=== PATIENT | male | born 1950 | race Caucasian/White ===

== ENCOUNTER 2021-05-09 11:31 | Day surgery (SDC) | payer MEDICARE, SELFPAY ==
[2021-05-09 11:50] VITALS: BP 144/66; PULSE 69; RESP 16; TEMP 36.6; O2SAT 97
[2021-05-09] MEDS: Tropicam./Phenyleph. (1/2.5%) 5 ML BTL OS ×3 (12:11→12:21)
--- NOTE | 2021-05-09 12:48 | W.ANESPRE ---
General Info Date of Service Date Performed: 05/09/21 Height: 5 ft 11 in Weight: 106 kg Body Mass Index (BMI): 32.5 Surgical Procedure: Operation Date: 05/09/21 14:40 Proposed Procedures Side Surgeon p Cataract Extraction with IOL Left Joshua Davies MD Meds Allergies and Home Medications Allergies Allergy/AdvReac Type Severity Reaction Status Date / Time hornet venom Allergy Severe Swelling/Ed Verified 05/09/21 11:43 janeen Home Medication Medication Instructions Recorded acetaminophen 325 mg PO Q8H PRN NS 08/29/16 bisacodyl [Dulcolax] 5 mg PO ONCE #4 tab 08/29/16 calcium carbonate 600 mg PO DAILY NS 08/29/16 cyanocobalamin (vitamin B-12) 2,500 mcg PO DAILY NS 08/29/16 polyethylene glycol 3350 [Miralax] 255 gm PO for colonoscopy #1 gm 08/29/16 sodium chloride [Saline Nose [place]] 45 ml NS PRN PRN spray NS 08/29/16 turmeric root extract 500 mg PO DAILY NS 08/29/16 amlodipine 2.5 mg PO DAILY 05/06/21 aspirin [Aspir-81] 81 mg PO DAILY 05/06/21 atorvastatin 20 mg PO HS 05/06/21 budesonide [Pulmicort Flexhaler] 1 inh INHALATION DAILY 05/06/21 folic acid 1 mg PO DAILY 05/06/21 losartan 50 mg PO DAILY 05/06/21 Current Visit Medications: Current Medications Generic Name Dose Route Start Last Admin Trade Name Freq PRN Reason Stop Dose Admin Acetaminophen 1,000 mg 05/09/21 06:00 Acetaminophen 500 Mg Tab PO Q4H PRN PRN Miscellaneous Medication 0 ml 05/09/21 06:00 Prednisolone 1%, Moxifloxacin 0.5%, Nepafenac 0.1% 5ml Btl OS DIRECTED [facility] Miscellaneous Medication 0 ml 05/09/21 06:00 05/09/21 12:21 Tropicam./Phenyleph. (1/2.5%) 5 Ml Btl OS 1 drp DIRECTED JEN Administration Tetracaine HCl 0 ml 05/09/21 06:00 Tetracaine 0.5% 4 Ml Btl OS DIRECTED [facility] Medical History Medical History Asbestosis Asthma Clavicular fracture Dizziness DJD (degenerative joint disease) Excessive drinking alcohol Gallbladder pancreatitis Hand injury HTN (hypertension) Obesity Right knee pain Sleep apnea Spinal stenosis Surgical History Surgical History Colonoscopy (08/31/10) Colonoscopy - MAC (09/18/16) Trigger Finger release Tobacco Smoking/Tobacco Use Status: Former Tobacco Use Alcohol Alcohol Intake: current Alcohol intake frequency: a few times a week Alcohol type: beer Substance Use Substance use: Never Substance use type: does not use Vital Signs and Lab Results Vital Signs Most Recent Vital Signs in EMR: Most Recent Vital Signs Temp Pulse Resp BP Pulse Ox 36.6 C 69 16 144/66 H 97 05/09/21 11:50 05/09/21 11:50 05/09/21 11:50 05/09/21 11:50 05/09/21 11:50 Lab Results Blood Type / Crossmatch: No Data to Display Complete Blood Count: No Data to Display Complete Metabolic Panel: No Data to Display Liver Function Panel: No Data to Display Coagulation Panel: No Data to Display Cardiac Panel: No Data to Display Arterial Blood Gas: No Data to Display Venous Blood Gas: No Data to Display Pancreas Panel: No Data to Display Thyroid Panel: No Data to Display Infectious Disease: No Data to Display Blood Cultures: No Data to Display Toxicology Panel: No Data to Display Anesthesia Assessment and Plan Anesthesia History Personal History: No History of Anesthesia Complications Family History: No Family History of Anesthesia Complications Exercise Tolerance Exercise Tolerance: Metabolic Equivalents>4 Pertinent Negatives Pertinent Negatives: No Symptoms of GERD, No Major Cardiovascular Symptoms or Complaints, No Major Pulmonary Symptoms or Complaints and No History of CVA/TIA Cardiac & Pulmonary Exam Cardiac Exam: Normal S1/S2 Heart Sounds Pulmonary Exam: Clear Bilateral Breath Sounds Airway Exam Known Difficult Airway: No Mallampati Class: 3 Mouth Opening: Narrow (< 3cm) Thyromental Distance: Greater than 3 cm Neck Range of Motion: Full ROM Neck Circumference: Normal Teeth Condition: Normal Dentition ASA Classification ASA Score: ASA 2 Emergency Case?: No NPO Status NPO Status: NPO Clears >2 hours, Solids >8 hours Anesthesia Plan Resuscitation Status: Full Code Anesthesia Technique: MAC Anesthesia Airway Planned: Natural Airway Monitors Used: Standard Monitors
[2021-05-09 12:49] VITALS: BMI 32.5
[2021-05-09] MEDS: Lidocaine 2% Jelly 6 ML SYR (14:00)
[2021-05-09] MEDS: Duovisc Viscoelastic System EACH 1 EACH (14:00)
[2021-05-09] MEDS: Balanced Salt Soln.-PLUS 500 ML BAG (14:00)
[2021-05-09] MEDS: Lidocaine 1% Pres-Free 5 ML VIAL (14:00)
[2021-05-09] MEDS: Povidone-Iodine Ophth 30 ML BTL (14:00)
[2021-05-09] MEDS: Tetracaine 0.5% 4 ML BTL OS (14:00)
--- NOTE | 2021-05-09 14:12 | W.ANESPOSTOP ---
Postoperative Evaluation Date, Time and Location Date Performed: 05/09/21 Time Performed: 14:30 Patient Location: Day Surgery Unit Vital Signs Most Recent Imported Vital Signs: Most Recent Vital Signs Temp Pulse Resp BP Pulse Ox 36.6 C 69 16 144/66 H 97 05/09/21 11:50 05/09/21 11:50 05/09/21 11:50 05/09/21 11:50 05/09/21 11:50 Most Recent Manually Entered Vital Signs: Adult Blood Pressure: 143/63 Heart Rate: 56 Respirations: 16 Oxygen Saturation (%): 99 Temperature (C): 36.1 C Pain Score (0-10 Scale): 0 Pain Score Most Recent Pain Score: Most Recent Pain Score Pain Level 0 05/09/21 11:50 Assessment Mental Status: Awake (Alert & Oriented to Patient Baseline) Airway and Respiratory Function: Patent airway with normal (patient baseline) respiratory exam Cardiovascular Function: Hemodynamically Stable Hydration Status: Adequately Hydrated Nausea & Vomiting: No Nausea or Vomiting Pain: Pt. Denies Any Pain Peripheral Nerve Block: Other (Local by Dr. Davies)
[2021-05-09 14:15] VITALS: BP 143/80; PULSE 59; RESP 16; TEMP 36.1; O2SAT 99
--- NOTE | 2021-05-09 14:16 | W.PM.DSUDISC ---
Discharge Plan Disposition Patient Disposition: HOME Condition: Good Discharge Details Attending Provider: Joshua Davies Primary Care Provider: Steven Castillo Home Meds and New Rx's Prescriptions: No Action acetaminophen 325 MG tablet 325 mg PO Q8H PRN RF: 0 calcium carbonate 600 MG tablet 600 mg PO DAILY RF: 0 sodium chloride [Saline Nose] 45 ML aerosol,spray 45 ml NS PRN PRNRF: 0 turmeric root extract 500 MG capsule 500 mg PO DAILY RF: 0 cyanocobalamin (vitamin B-12) 2,500 MCG tablet 2,500 mcg PO DAILY RF: 0 polyethylene glycol 3350 [Miralax] 17 GM powder in packet 255 gm PO for colonoscopy Qty: 1 RF: 0 bisacodyl [Dulcolax (bisacodyl)] 5 MG tablet,delayed release (DR/EC) 5 mg PO ONCE Qty: 4 RF: 0 losartan 50 mg Tablet 50 mg PO DAILY RF: 0 atorvastatin 20 mg Tablet 20 mg PO HS RF: 0 amlodipine 2.5 mg Tablet 2.5 mg PO DAILY RF: 0 aspirin [Aspir-81] 81 mg Tablet,Delayed Release (Dr/Ec) 81 mg PO DAILY RF: 0 folic acid 1 mg Tablet 1 mg PO DAILY RF: 0 Pulmicort Flexhaler 180 mcg/actuation Aerosol Powdr Breath Activated 1 inh INHALATION DAILY RF: 0 Discharge Instructions Stand Alone Forms: Post-op Topical Cataract, See [place] (DSU) Discharge Orders Discharge Orders: Discharge Order (Routine); Ordered 05/09/21 Ordered By: Joshua Davies DS: Diagnosis Discharge Diagnosis (1) Nuclear sclerotic cataract of left eye: Status: Resolved
--- NOTE | 2021-05-09 14:17 | W.PM.OP ---
Date of service: 05/09/21 Time of Service: 14:17 Operative Note Operative Note DATE OF PROCEDURE: 05/09/21 PRE-OP DIAGNOSIS: Nuclear cataract, left eye POST-OP DIAGNOSIS: same PROCEDURE: Cataract extraction using phacoemulsification with intraocular lens implant, left eye SURGEON: Joshua Davies ANESTHESIA TYPE: Local By Surgeon and MAC Refer to Anesthesia Record PATHOLOGY: none sent COMPLICATIONS: None Patient was transported to: same day Patient's condition: stable Implants: Polo and Polo / [employer] Tecnis [id number] Indications: Progressive decreased vision due to cataract, left eye, with poor red reflex Procedure Description: CATARACT SURGERY OPERATIVE REPORT PREOPERATIVE DIAGNOSIS: 1. Nuclear cataract, left eye POSTOPERATIVE DIAGNOSIS: Same OPERATION: 1. Cataract extraction using phacoemulsification with posterior chamber intraocular lens implant, left eye. IOL: IOL Quality Assurance Auditor/Model: Polo & Polo / SAUL Tecnis [id number] IOL Power: + 11.0 diopters IOL Serial Number: [id number] Optic Diameter: 6.0 mm Haptic/Overall Diameter: 13.0 mm PHACO INFO: Karlos[employer]oomrat Vision System with OZil and Active Fluidics Cumulative Dispersed Energy (CDE): 13.53 seconds SURGEON: Joshua Davies MD, ADDISON ANESTHESIA: Monitored A [facility] (MAC), with local sub-tenon's anesthetic infiltration COMPLICATIONS: None SPECIMENS: None INDICATIONS FOR PROCEDURE: The patient is a 70-year-old gentleman with history of diminished visual acuity in his left eye secondary to the development of significant nuclear cataract. He has a history of high myopia and amblyopia. The option of cataract surgery was offered to the patient and he felt he was symptomatic enough that he wished to proceed. PROCEDURE: The correct surgical eye was identified and marked as the left eye and the pupil was dilated in the preoperative area using mydriatics and cycloplegics. The dilated pupil size was 7.0 mm. Oral sedation was administered in the form of an Imprimis MKO Melt (midazolam 3mg/ketamine 25mg/ondansetron 2mg). The patient was brought to the operating room where cardiopulmonary monitoring was instituted and surgical time-out was performed, confirming the correct operative eye and IOL power. Topical anesthesia was administered and ophthalmic povidone-iodine 5% was instilled into the conjunctival fornices. Lidocaine gel was applied to the cornea and the nicanor-ocular area was prepped with Betadine 10% solution and draped in the usual sterile fashion for intraocular surgery, including an aperture drape. A Tegaderm transparent film dressing was cut in half and used to cover the lashes and lid margins. Care was taken to sequester the lashes and lid margins under the Tegaderm dressing. A lid speculum was placed between the lids of the operative eye and the Jerry-Trina operating microscope was maneuvered into position. Edinson scissors were then used to make a conjunctival buttonhole approximately 6mm posterior to the limbus in the inferonasal quadrant. Blunt dissection was carried out to expose bare sclera, and a blunt-tipped sub-tenon?s anesthesia cannula was introduced and passed posteriorly along the globe where non-preserved plain lidocaine was injected into posterior sub-Tenon?s space. A sideport knife was used to make a paracentesis port superiorly/superiortemporally. Intraocular phenylephrine/lidocaine was injected int the anterior chamber.. Air was then injected into the anterior chamber, followed by Vision Blue, which was painted over the anterior capsule and then irrigated out using BSS. The anterior chamber was filled with viscoelastic. A 2.4mm keratome knife was used to create a half-thickness groove at the limbus and then to construct a three-plane near-clear corneal tunnel extending 2.0mm into clear cornea at the 3:00 position. A flap was raised on the anterior capsule and capsulorhexis forceps were used to complete a continuous curvilinear capsulorhexis of 5.0 mm. Balanced salt solution was then used to perform cortical cleaving hydrodissection and nuclear hydrodelineation until the lens could be freely rotated within the capsular bag. The lens nucleus was then disassembled and removed within the capsular bag and iris plane using phacoemulsification. Residual cortical material was removed using the 45-degree angled silicone I/A tip with 0.3mm port. The posterior capsule was carefully polished to remove as much residual lens epithelial cells as safely possible. The capsular bag was then inflated and the anterior chamber deepened with viscoelastic. The lens implant described above was inserted into the capsular bag using the SAUL [place] Injector. A Kuglen hook was used to dial the IOL into position. Residual viscoelastic was then removed first from posterior to the IOL, then from the anterior chamber using the I/A handpiece. The lens implant was noted to center nicely within the capsular bag. The incisions were stromally hydrated, and the anterior chamber was reformed using BSS. Then 0.5cc of moxifloxacin 1.0mg/ml were injected into the capsular bag and anterior chamber. The incisions were checked with a Weck spear and found to be secure. Several drops of ophthalmic povidone-iodine 5% were then applied to the eye followed by two drops of Imprimis combination prednisolone/moxifloxacin/nepafenac solution. The drapes were removed and a clear plastic protective eye shield was placed over the eye. The patient was then returned to Same Day Surgery in stable condition.
[2021-05-10 07:29] VITALS: BP 143/63; PULSE 56; RESP 16; TEMPC 36.1; O2SAT 99
== END 2021-05-09 14:58 | disposition home or self-care (01) ==
PROVIDERS: PCP Family Medicine; Visit Provider Ophthalmology
PROC: (CPT 66984; principal; 2021-05-09 14:30)
DX: H25.12 Age-related nuclear cataract, left eye (principal)
CPT/HCPCS: 66984; V2632

== ENCOUNTER 2021-05-23 08:02 | Day surgery (SDC) | payer MEDICARE, SELFPAY ==
[2021-05-23 08:24] VITALS: BP 125/60; PULSE 70; RESP 16; TEMP 36.6; O2SAT 97
[2021-05-23] MEDS: Tropicam./Phenyleph. (1/2.5%) 5 ML BTL OD ×3 (08:33→08:45)
[2021-05-23 08:43] VITALS: BMI 32.9
--- NOTE | 2021-05-23 08:43 | W.ANESPRE ---
General Info Date of Service Date Performed: 05/23/21 Height: 5 ft 11 in Weight: 107.2 kg Body Mass Index (BMI): 32.9 Surgical Procedure: Operation Date: 05/23/21 10:40 Proposed Procedures Side Surgeon p Cataract Extraction with IOL Implant Right Joshua Davies MD Meds Allergies and Home Medications Allergies Allergy/AdvReac Type Severity Reaction Status Date / Time hornet venom Allergy Severe Swelling/Ed Verified 05/23/21 08:19 janeen Home Medication Medication Instructions Recorded acetaminophen 325 mg PO Q8H PRN NS 08/29/16 bisacodyl [Dulcolax] 5 mg PO ONCE #4 tab 08/29/16 calcium carbonate 600 mg PO DAILY NS 08/29/16 cyanocobalamin (vitamin B-12) 2,500 mcg PO DAILY NS 08/29/16 polyethylene glycol 3350 [Miralax] 255 gm PO for colonoscopy #1 gm 08/29/16 sodium chloride [Saline Nose [place]] 45 ml NS PRN PRN spray NS 08/29/16 turmeric root extract 500 mg PO DAILY NS 08/29/16 amlodipine 2.5 mg PO DAILY 05/06/21 aspirin [Aspir-81] 81 mg PO DAILY 05/06/21 atorvastatin 20 mg PO HS 05/06/21 budesonide [Pulmicort Flexhaler] 1 inh INHALATION DAILY 05/06/21 folic acid 1 mg PO DAILY 05/06/21 losartan 50 mg PO DAILY 05/06/21 Current Visit Medications: Current Medications Generic Name Dose Route Start Last Admin Trade Name Freq PRN Reason Stop Dose Admin Acetaminophen 1,000 mg 05/23/21 06:00 Acetaminophen 500 Mg Tab PO Q4H PRN PRN Miscellaneous Medication 0 ml 05/23/21 06:00 Prednisolone 1%, Moxifloxacin 0.5%, Nepafenac 0.1% 5ml Btl OD DIRECTED JEN Miscellaneous Medication 0 ml 05/23/21 06:00 05/23/21 08:40 Tropicam./Phenyleph. (1/2.5%) 5 Ml Btl OD 1 drp DIRECTED JEN Administration Tetracaine HCl 0 ml 05/23/21 06:00 Tetracaine 0.5% 4 Ml Btl OD DIRECTED JEN PFSH Active Problems Active Problems: Problem Status Onset Code Nuclear sclerotic cataract of left eye H25.12 Nuclear sclerotic cataract of right eye H25.11 Medical History Medical History (Updated 05/23/21 @ 08:19 by Fernando Roy) Asbestosis Asthma Cataract Left eye with lens implant. Clavicular fracture Dizziness DJD (degenerative joint disease) Excessive drinking alcohol Gallbladder pancreatitis Hand injury HTN (hypertension) Obesity Right knee pain Sleep apnea Spinal stenosis Surgical History Surgical History (Updated 05/23/21 @ 08:18 by Fernando Roy) Colonoscopy (08/31/10) Colonoscopy - MAC (09/18/16) History of total right knee replacement (TKR) Trigger Finger release Tobacco Smoking/Tobacco Use Status: Former Tobacco Use Alcohol Alcohol Intake: current Alcohol intake frequency: a few times a week Alcohol type: beer Substance Use Substance use: Never Substance use type: does not use Vital Signs and Lab Results Vital Signs Most Recent Vital Signs in EMR: Most Recent Vital Signs Temp Pulse Resp BP Pulse Ox 36.6 C 70 16 125/60 97 05/23/21 08:24 05/23/21 08:24 05/23/21 08:24 05/23/21 08:24 05/23/21 08:24 Lab Results Blood Type / Crossmatch: No Data to Display Complete Blood Count: No Data to Display Complete Metabolic Panel: No Data to Display Liver Function Panel: No Data to Display Coagulation Panel: No Data to Display Cardiac Panel: No Data to Display Arterial Blood Gas: No Data to Display Venous Blood Gas: No Data to Display Pancreas Panel: No Data to Display Thyroid Panel: No Data to Display Infectious Disease: No Data to Display Blood Cultures: No Data to Display Toxicology Panel: No Data to Display Anesthesia Assessment and Plan Anesthesia History Personal History: No History of Anesthesia Complications Family History: No Family History of Anesthesia Complications Exercise Tolerance Exercise Tolerance: Metabolic Equivalents>4 Pertinent Negatives Pertinent Negatives: No Symptoms of GERD Cardiac & Pulmonary Exam Cardiac Exam: Normal S1/S2 Heart Sounds Pulmonary Exam: Clear Bilateral Breath Sounds Airway Exam Known Difficult Airway: No Mallampati Class: 3 Mouth Opening: Narrow (< 3cm) Thyromental Distance: Greater than 3 cm Neck Range of Motion: Full ROM Neck Circumference: Normal Teeth Condition: Normal Dentition ASA Classification ASA Score: ASA 2 Emergency Case?: No NPO Status NPO Status: NPO Clears >2 hours, Solids >8 hours Anesthesia Plan Resuscitation Status: Full Code Anesthesia Technique: MAC Anesthesia Airway Planned: Natural Airway Monitors Used: Standard Monitors
[2021-05-23] MEDS: Povidone-Iodine Ophth 30 ML BTL (09:41)
[2021-05-23] MEDS: Lidocaine 2% Jelly 6 ML SYR (09:41)
[2021-05-23] MEDS: Tetracaine 0.5% 4 ML BTL OD (09:41)
[2021-05-23] MEDS: Lidocaine 1% Pres-Free 5 ML VIAL (09:41)
[2021-05-23] MEDS: Balanced Salt Soln.-PLUS 500 ML BAG (09:49)
[2021-05-23] MEDS: Duovisc Viscoelastic System EACH 1 EACH (09:49)
--- NOTE | 2021-05-23 10:15 | W.PM.DSUDISC ---
Discharge Plan Disposition Patient Disposition: HOME Condition: Good Discharge Details Reason For Visit: Cataract Attending Provider: Joshua Davies Primary Care Provider: Steven Castillo Home Meds and New Rx's Prescriptions: No Action acetaminophen 325 MG tablet 325 mg PO Q8H PRN RF: 0 calcium carbonate 600 MG tablet 600 mg PO DAILY RF: 0 sodium chloride [Saline Nose] 45 ML aerosol,spray 45 ml NS PRN PRNRF: 0 turmeric root extract 500 MG capsule 500 mg PO DAILY RF: 0 cyanocobalamin (vitamin B-12) 2,500 MCG tablet 2,500 mcg PO DAILY RF: 0 polyethylene glycol 3350 [Miralax] 17 GM powder in packet 255 gm PO for colonoscopy Qty: 1 RF: 0 bisacodyl [Dulcolax (bisacodyl)] 5 MG tablet,delayed release (DR/EC) 5 mg PO ONCE Qty: 4 RF: 0 losartan 50 mg Tablet 50 mg PO DAILY RF: 0 atorvastatin 20 mg Tablet 20 mg PO HS RF: 0 amlodipine 2.5 mg Tablet 2.5 mg PO DAILY RF: 0 aspirin [Aspir-81] 81 mg Tablet,Delayed Release (Dr/Ec) 81 mg PO DAILY RF: 0 folic acid 1 mg Tablet 1 mg PO DAILY RF: 0 Pulmicort Flexhaler 180 mcg/actuation Aerosol Powdr Breath Activated 1 inh INHALATION DAILY RF: 0 Discharge Instructions Stand Alone Forms: Post-op Topical Cataract, See [place] ([facility]U) Discharge Orders Discharge Orders: Discharge Order (Routine); Ordered 05/23/21 Ordered By: Joshua Davies DS: Diagnosis Discharge Diagnosis (1) Nuclear sclerotic cataract of right eye: Status: Resolved
--- NOTE | 2021-05-23 10:15 | W.PM.OP ---
Date of service: 05/23/21 Time of Service: 10:16 Operative Note Operative Note DATE OF PROCEDURE: 05/23/21 PRE-OP DIAGNOSIS: Nuclear cataract, right eye POST-OP DIAGNOSIS: same PROCEDURE: Cataract extraction using phacoemulsification with intraocular lens implant, right eye SURGEON: Joshua Davies ANESTHESIA TYPE: Local By Surgeon and MAC Refer to Anesthesia Record ESTIMATED BLOOD LOSS: 0 PATHOLOGY: none sent COMPLICATIONS: None Patient was transported to: same day Patient's condition: stable Implants: Polo & Polo/SAUL Tecnis [id number] Indications: Progressive visual loss due to cataract, right eye Procedure Description: CATARACT SURGERY OPERATIVE REPORT PREOPERATIVE DIAGNOSIS: 1. Nuclear cataract, right eye POSTOPERATIVE DIAGNOSIS: Same OPERATION: 1. Cataract extraction using phacoemulsification with posterior chamber intraocular lens implant, right eye. IOL: IOL Bench Worker Hollow Handle/Model: Polo & Polo / SAUL Tecnis [id number] IOL Power: + 12.0 diopters IOL Serial Number: [id number] Optic Diameter: 6.0mm Haptic/Overall Diameter: 13.0mm PHACO INFO: [employer] Vision System with OZil and Active Fluidics Cumulative Dispersed Energy (CDE): 14.45 seconds SURGEON: Joshua Davies MD, ADDISON ANESTHESIA: Monitored Anesthesia Care (MAC), with local sub-tenon's anesthetic infiltration COMPLICATIONS: None SPECIMENS: None INDICATIONS FOR PROCEDURE: The patient is a 70-year-old gentleman with history of high myopia who developed significant bilateral nuclear cataract. He has already undergone cataract surgery in the left eye and is doing well postoperatively. He now presents for cataract surgery in the right eye. PROCEDURE: The correct surgical eye was identified and marked as the right eye and the pupil was dilated in the preoperative area using mydriatics and cycloplegics. The dilated pupil size was 7.0 mm. He elected to proceed without oral sedation.. The patient was brought to the operating room where cardiopulmonary monitoring was instituted and surgical time-out was performed, confirming the correct operative eye and IOL power. Topical anesthesia was administered and ophthalmic povidone-iodine 5% was instilled into the conjunctival fornices. Lidocaine gel was applied to the cornea and the nicanor-ocular area was prepped with Betadine 10% solution and draped in the usual sterile fashion for intraocular surgery, including an aperture drape. A Tegaderm transparent film dressing was cut in half and used to cover the lashes and lid margins. Care was taken to sequester the lashes and lid margins under the Tegaderm dressing. A lid speculum was placed between the lids of the operative eye and the Jerry-Trina operating microscope was maneuvered into position. Edinson scissors were then used to make a conjunctival buttonhole approximately 6mm posterior to the limbus in the inferonasal quadrant. Blunt dissection was carried out to expose bare sclera, and a blunt-tipped sub-tenon?s anesthesia cannula was introduced and passed posteriorly along the globe where non-preserved plain lidocaine was injected into posterior sub-Tenon?s space. A sideport knife was used to make a paracentesis port inferotemporally. Intraocular phenylephrine/lidocaine was injected into the anterior chamber. The anterior chamber was filled with viscoelastic. A 2.4mm keratome knife was used to create a half-thickness groove at the limbus and then to construct a three-plane near-clear corneal tunnel extending 2.0mm into clear cornea superiortemporally. A flap was raised on the anterior capsule and capsulorhexis forceps were used to complete a continuous curvilinear capsulorhexis of 5.5 mm. Balanced salt solution was then used to perform cortical cleaving hydrodissection and nuclear hydrodelineation until the lens could be freely rotated within the capsular bag. The lens nucleus was then disassembled and removed within the capsular bag and iris plane using phacoemulsification. Residual cortical material was removed using the I/A handpiece. The posterior capsule was carefully polished to remove as much residual lens epithelial cells as safely possible. The capsular bag was then inflated and the anterior chamber deepened with viscoelastic. The lens implant described above was inserted into the capsular bag using the SAUL [place] Injector. A Kuglen hook was used to dial the IOL into position. Residual viscoelastic was then removed first from posterior to the IOL, then from the anterior chamber using the I/A handpiece. The lens implant was noted to center nicely within the capsular bag. The incisions were stromally hydrated, and the anterior chamber was reformed using BSS. Then 0.5cc of moxifloxacin 1.0mg/ml were injected into the capsular bag and anterior chamber. The incisions were checked with a Weck spear and found to be secure. Several drops of ophthalmic povidone-iodine 5% were then applied to the eye followed by two drops of Imprimis combination prednisolone/moxifloxacin/nepafenac solution. The drapes were removed and a clear plastic protective eye shield was placed over the eye. The patient was then returned to Same Day Surgery in stable condition.
[2021-05-23 10:19] VITALS: BP 145/74; PULSE 74; RESP 16; TEMP 36.4; O2SAT 100
--- NOTE | 2021-05-23 10:30 | W.ANESPOSTOP ---
Postoperative Evaluation Date, Time and Location Date Performed: 05/23/21 Time Performed: 10:14 Patient Location: Day Surgery Unit Vital Signs Most Recent Imported Vital Signs: Most Recent Vital Signs Temp Pulse Resp BP Pulse Ox 36.4 C L 74 16 145/74 H 100 05/23/21 10:19 05/23/21 10:19 05/23/21 10:19 05/23/21 10:19 05/23/21 10:19 Pain Score Most Recent Pain Score: Most Recent Pain Score Pain Level 0 05/23/21 10:19 Assessment Mental Status: Awake (Alert & Oriented to Patient Baseline) Airway and Respiratory Function: Patent airway with normal (patient baseline) respiratory exam Cardiovascular Function: Hemodynamically Stable Hydration Status: Adequately Hydrated Nausea & Vomiting: No Nausea or Vomiting Pain: Pt. Denies Any Pain Peripheral Nerve Block: Patient did not receive a nerve block
== END 2021-05-23 10:30 | disposition home or self-care (01) ==
PROVIDERS: PCP Family Medicine; Visit Provider Ophthalmology
PROC: (CPT 66984; principal; 2021-05-23 10:30)
DX: H25.11 Age-related nuclear cataract, right eye (principal); I10 Essential (primary) hypertension; G47.30 Sleep apnea, unspecified; J45.909 Unspecified asthma, uncomplicated
CPT/HCPCS: 66984; V2632